=== PATIENT | male | born 1980 | race Two or more races ===

== ENCOUNTER 2021-05-18 19:43 | Emergency (ER) | payer OTHER ==
[~2021-05-18] VITALS: Ht 198.1 cm; Wt 81.6 kg
--- NOTE | 2021-05-18 22:40 | NUR ---
PT BIBS. SORETHROAT, FEVER AND CHILLS TODAY. PT A/OX4 TOLERATING R/A WELL WITH NO SOB.
[2021-05-18 22:59] VITALS: BP 143/95
--- NOTE | 2021-05-18 23:45 | NUR ---
COVID ANTIGEN, PCR AND STEP THROAT SWAB COLLECTED AND SENT TO LAB
--- NOTE | 2021-05-19 00:47 | NUR ---
COVID POSITIVE RESULT
--- NOTE | 2021-05-19 01:21 | NUR ---
Patient discharged to home in stable condition. Written and verbal after care instructions given. Patient verbalizes understanding of instruction. Pt ambulatory with a steady gait
== END 2021-05-19 01:24 | disposition home or self-care (01) ==
LOC: ER 19:47
DX: U07.1 COVID-19 (principal)
CPT/HCPCS: 87070; 87426; 87880; 99283; C9803; U0003; 86403-TC